=== PATIENT | female | born 1980 | race Caucasian/White ===

== ENCOUNTER 2022-08-02 14:54 | Emergency (ER) | payer BC, SELFPAY ==
[2022-08-02 15:07] VITALS: BP 115/71; PULSE 71; RESP 16; TEMP 36.6; O2SAT 97
--- NOTE | 2022-08-02 15:18 | ED.GENADULT ---
HPI - General Adult General Chief complaint: Nausea/Vomiting/Diarrhea Stated complaint: inflamed lining in stomach Time Seen by Provider: 08/02/22 15:18 Source: patient, RN notes reviewed and old records reviewed Mode of arrival: ambulatory Limitations: no limitations History of Present Illness HPI narrative: 42 year old female who presents to express care with complaints of having flu in May with prolonged feelings of nausea and vomiting and episodes of diarrhea since that time. Patient reports that she has seen her PCP 3 times without improvement in symptoms.She has been seen in the emergency room in [facility], and also [facility]. She reports that her symptoms of nausea and vomiting, diarrhea have decreased since medications of Carafate and Prilosec have been started and she is not taking her Metformin. She was told by ER doctor in [place] that she has inflammation of the lining of her stomach. Patient reports today that she is having some intermittent sharp right upper quadrant abdominal discomfort and doesn't know where to turn next. Patient reports no blood noted in emesis or stools, reports that she had one incidence of blood noted in diarrhea in June none since.Patient does have some discomfort on palpation to right upper abdominal quadrant denies any radiation of pain to back or any feelings of bloating. MD complaint: nausea with vomiting, diarrhea, right upper abdomen pain Onset (ago): week(s) (9) Location: abdomen (right upper quadrant abdomen) Severity scale (1-10): 3 Treatments prior to arrival: other (carafate and omeprazole) Related Data Allergies Allergy/AdvReac Type Severity Reaction Status Date / Time Sulfa (Sulfonamide Allergy Rash Verified 08/02/22 15:33 Antibiotics) Review of Systems Review of Systems: CONSTITUTIONAL: Denies fever, chills, or sweats. ENT: Denies rhinorrhea, congestion, sore throat, or otalgia. CARDIOVASCULAR: Denies chest pain, palpitations, or edema. RESPIRATORY: Denies cough or dyspnea. GASTROINTESTINAL: Reports right upper quadrant abdominal pain, nausea, vomiting, diarrhea. GENITOURINARY: Denies dysuria or hematuria. SKIN: Denies rash or itching. MUSCULOSKELETAL: Denies back pain, joint pain, or myalgia. NEUROLOGIC: Denies headache, numbness, or weakness. All systems reviewed & are unremarkable except as noted in HPI and below PMFSH Past Medical History Medical History (Updated 08/02/22 @ 17:03 by Chrissie Amador NP) Diabetes Premature infant of unknown weight 6 month gestation Surgical History Surgical History (Updated 08/02/22 @ 17:04 by Chrissie Amador NP) Hx of heart surgery history of heart-lung surgery as premature infant Social History Social History (Updated 08/02/22 @ 17:02 by Chrissie Amador NP) Smoking status: Former smoker Alcohol intake: current Alcohol use details: rare social Substance use type: does not use Gender identity (if verbalized by the patient): Female Comments At time of signature, agree with nursing past medical, surgical, social and family history. There is no relevant family history pertinent to the presenting complaint Exam Narrative: GENERAL: Well-appearing, well-nourished, and in no acute distress. HEAD: Normocephalic, atraumatic. EYES: PERRLA, conjunctivae clear, and EOMI. ENT: Nares clear. Mucous membranes moist. Oropharynx without edema, erythema, or lesions. Tonsils not enlarged and without exudate. NECK: Supple. No lymphadenopathy CHEST: Speaks in full sentences. No respiratory distress. HEART: Regular rate and rhythm. ABDOMEN: Soft, flat, nondistended. No guarding, rebound tenderness, or rigid. No pulsatilla masses. Bowel sounds present in all four quadrants. No organomegaly. No periumbilical tenderness. No Supra public tenderness or distension. Good femoral pulses bilaterally. No hernia noted. No scars or surface trauma,palpable pain to right upper abdominal quadrant. SKIN: W
== END 2022-08-02 16:03 | disposition home or self-care (01) ==
PROVIDERS: Emergency Provider Registered Nurse
DX: K29.70 Gastritis, unspecified, without bleeding (principal); R10.11 Right upper quadrant pain; Z87.891 Personal history of nicotine dependence; E11.9 Type 2 diabetes mellitus without complications
CPT/HCPCS: 99213; G0463

== ENCOUNTER 2022-08-07 12:10 | Outpatient (CLI) | payer BC, SELFPAY ==
--- NOTE | ~2022-08-07 | XR_ITS ---
Supine and upright views of the abdomen Clinical history: Abdominal pain Findings: Bowel gas pattern is nonspecific. No evidence for obstruction or free air. No abnormal mass lesion or calcification is seen. Osseous structures are intact. Impression: No significant abnormality is seen. Reviewed, dictated and finalized at [facility]. 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
[2022-08-07 13:18] LABS: Hemoglobin 15.1 g/dL (12.0-15.0); Mean Corpuscular HGB Conc 32.1 g/dl (32-36); Mean Corpuscular Hemoglobin 28.4 pg (26-34); Mean Corpuscular Volume 88.5 fl (80-100); Mean Platelet Volume 9.6 fl (7.4-10.4); Platelet Count Result 450 k/mm3 (150-375); Red Blood Count 5.31 M/mm3 (4.2-5.4); Red Cell Distribution Width 13.2 % (11.5-14.5); White Blood Count 10.4 K/mm3 (4.5-10.0)
[2022-08-07 13:32] LABS: Alanine Aminotransferase 68 U/L (6-35); Albumin Level 4.4 g/dL (3.5-5.1); Alkaline Phosphatase 66 U/L (38-126); Amylase 73 U/L (30-110); Anion Gap 7 mmol/L (8-16); Aspartate Amino Transferase 45 U/L (14-36); Bilirubin,Total 0.4 mg/dL (0.2-1.3); Blood Urea Nitrogen 16 mg/dL (7-17); CRP 0.6 mg/dL (<1.0); Calcium 8.8 mg/dL (8.4-10.2); Carbon Dioxide 24 mmol/L (22-30); Chloride 102 mmol/L (98-107); Estimated Glomerular Filt Rate > 60; Glucose 174 mg/dL (65-110); Lipase 142 U/L (23-300); Potassium 3.8 mmol/L (3.4-5.0); Sodium 133 mmol/L (137-145)
[2022-08-07 14:24] LABS: Thyroid Stimulating Hormone Reflex 0.358 uIU/mL (0.465-4.68)
[2022-08-07 14:55] LABS: Free T4 Free Thyroxine Reflex 1.66 ng/dL (0.78-2.19)
[2022-08-07 15:24] LABS: Erythrocyte Sedimentation Rate 4 mm/hr (0-20)
[2022-08-07 17:26] LABS: Total Triiodothyronine (T3) 1.48 NG/ML (0.97-1.69)
[2022-08-10 13:01] LABS: Gliadin AB, IgG <1.0 U/mL (<15.0); TTG IGA AB <1.0 U/mL (<15.0)
== END 2022-08-07 12:11 | disposition home or self-care (01) ==
PROVIDERS: PCP Nurse Practitioner; Visit Provider Nurse Practitioner
DX: R10.11 Right upper quadrant pain (principal); R14.0 Abdominal distension (gaseous); R11.0 Nausea; K92.1 Melena; R10.817 Generalized abdominal tenderness
CPT/HCPCS: 36415; 74018; 80053; 82150; 83516; 83690; 84439; 84443; 84480; 85027; 85652; 86140; 86255

== ENCOUNTER 2022-08-08 12:18 | Outpatient (CLI) | payer BC, SELFPAY ==
--- NOTE | ~2022-08-08 | US_ITS ---
US abdomen limited INDICATION: Right upper quadrant pain since May. Nausea. PROCEDURE: Realtime right upper abdominal ultrasound. COMPARISON: No prior studies for comparison. FINDINGS: The pancreas is normal without focal mass or pancreatic ductal dilation. Liver echotexture is diffusely increased, consistent with fatty infiltration. There is focal fatty sparing near the ga llbladder fossa. There is normal directional flow in the portal vein. The gallbladder is normal without stones, gallbladder wall thickening or pericholecystic fluid. Comm on bile duct measures 4 mm. Positive sonographic Salas's sign. IMPRESSION: 1: Hepatic steatosis. 2: Positive sonographic Salas's sign, nonspecific. No significant abnormality of the gallbladder bernice ntified. Reviewed, dictated and finalized at location [facility]. 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 2: Positive sonographic Salas's sign, nonspecific. No significant abnormality of the gallbladder identified.
[2022-08-08 18:45] LABS: Hemoglobin A1C 6.4 % (<5.7)
[2022-08-08 18:57] LABS: Hepatitis B Surface Antigen Negative (Negative)
[2022-08-08 19:03] LABS: HAV RESULT Negative (Negative); Hepatitis B Core IgM Result Negative (Negative)
[2022-08-08 19:15] LABS: Hepatitis C Virus Antibody Negative (Negative)
== END 2022-08-08 12:19 | disposition home or self-care (01) ==
LOC: ANHIMG 12:19
PROVIDERS: PCP Nurse Practitioner; Visit Provider Nurse Practitioner
DX: R10.11 Right upper quadrant pain (principal); R11.0 Nausea; R14.0 Abdominal distension (gaseous); R73.09 Other abnormal glucose; R79.89 Other specified abnormal findings of blood chemistry; K76.0 Fatty (change of) liver, not elsewhere classified
CPT/HCPCS: 36415; 76705; 80074; 83036

== ENCOUNTER 2022-08-29 01:48 | Day surgery (SDC) | payer BC, SELFPAY ==
[2022-08-17 15:49] VITALS: BMI 32.6
[2022-08-29 13:13] VITALS: BP 104/63; PULSE 79; RESP 17; TEMP 36.4; O2SAT 97; BMI 31.9
[2022-08-29] MEDS: LACTATED RINGERS 1,000 ML 150 ML IV CONT (13:27)
[2022-08-29 13:30] LABS: Glucose Point of Care 130 mg/dl (65-105)
--- NOTE | 2022-08-29 13:44 | WPDHPUPDATE1 ---
History and Physical Update Update Date/Time: 08/29/22 13:44 History and Physical has been reviewed, including an updated exam of the patient. There are NO changes in the patient's condition. Risks, benefits, and alternatives have been discussed and questions answered. Patient agrees to proceed with procedure.
--- NOTE | 2022-08-29 13:47 | WPDANESEPPF ---
Anes - Initial Pre Proc Eval Procedure: Operation Date: 08/29/22 14:15 Proposed Procedures p Esophagogastroduodenoscopy & Colonoscopy - Rivera Singer MD Date/Time: 08/29/22 13:47 Surgeon: Rivera Singer MD Pre Op Diagnosis: Hematochezia, Nausea, Abdominal Pain Patient Data Age: 42 Gender: F Height: 1.57 m Weight: 79.3 kg Last Vital Signs Temp 97.6 F 08/29/22 13:13 Pulse 79 08/29/22 13:13 Resp 17 08/29/22 13:13 BP 104/63 08/29/22 13:13 Pulse Ox 97 08/29/22 13:13 O2 Del Method Room Air 08/29/22 13:13 Allergies Allergy/AdvReac Type Severity Reaction Status Date / Time Sulfa (Sulfonamide Allergy Rash Verified 08/29/22 13:07 Antibiotics) Red dye 11 Allergy Mild Hives Uncoded 08/29/22 13:07 Home Medications Medication Instructions Recorded Confirmed Type dicyclomine 20 mg tablet 20 mg PO .every 6 hours PRN 08/07/22 08/29/22 Rx abdominal discomfort #120 tabs empagliflozin 25 mg tablet 25 mg PO DAILY 08/07/22 08/29/22 History (Jardiance) omeprazole 40 mg capsule,delayed 40 mg PO BID #60 caps 08/07/22 08/29/22 Rx release ondansetron 4 mg disintegrating 4 mg PO Q8H PRN Nausea And Vomiting 08/07/22 08/29/22 History tablet sucralfate 1 gram tablet (Carafate) 1 g PO ACHS #120 tabs 08/07/22 08/29/22 Rx metoclopramide HCl 5 mg tablet 5 mg PO ACHS #120 tabs 08/14/22 08/29/22 Rx (Reglan) levothyroxine 112 mcg tablet 112 mcg PO DAILY 08/17/22 08/29/22 History metformin 500 mg tablet 500 mg PO DAILY 08/17/22 08/29/22 History Laboratory Tests 08/29/22 13:21 POC Capillary Glucose 130 mg/dl H mg/dl (65-105) Patient hx anesthesia problems: none Family hx anesthesia problems: none Results Review: All pre-operative results and documents have been reviewed as part of the pre-operative evaluation. [facility] Past Medical History Medical History (Updated 08/08/22 @ 08:32 by Julieta Laurent APRN) Abdominal distension Diabetes Elevated glucose Elevated LFTs Generalized abdominal tenderness Hematochezia Low TSH level Nausea Obesity Premature of unknown weight 6 month gestation RUQ abdominal pain Surgical History Surgical History Hx of heart surgery history of heart-lung surgery as premature Social History Social History Smoking status: Former smoker Tobacco type: cigarettes Alcohol intake: current Alcohol use details: rarely- 2X yearly Substance use: never Substance use type: does not use Gender identity (if verbalized by the patient): Female Spiritual care concerns: No Anes - Eval Final PreProcedure Day of Procedure 08/29/22 13:47 Patient weight: obese Heart: regular rate and rhythm Lungs: clear to auscultation Airway: Mallampati scale class III Neurological: alert and oriented Last oral intake: >/= 8 hours ASA classification: III Emergent: no Anesthetic plan: proceed Anesthesia type and monitoring: general GIVS and standard monitoring Results Review: All pre-operative results and documents have been reviewed as part of the pre-operative evaluation. Informed Consent: The patient's anesthetic plan and its attendant risks and benefits were discussed with the patient/family/POA. Questions were solicited and answers provided to the satisfaction of the patient/family/POA.
--- NOTE | 2022-08-29 14:05 | SUR.OPER ---
EGD: [id number] COLON: [id number]
[2022-08-29 14:19] VITALS: BP 94/61; PULSE 89; RESP 19; O2SAT 96
[2022-08-29 14:29] VITALS: BP 105/69; PULSE 88; RESP 30; O2SAT 95
[2022-08-29 14:39] VITALS: BP 98/64; PULSE 75; RESP 20; O2SAT 93
== END 2022-08-29 14:45 | disposition home or self-care (01) ==
PROVIDERS: Visit Provider Internal Medicine Gastroenterology
PROC: 0DJ08ZZ Inspection of Upper Intestinal Tract, Via Natural or Artificial Opening Endoscopic (ICD-10-PCS; CPT 43235; principal; 2022-08-29 14:15)
DX: R10.817 Generalized abdominal tenderness (principal); K92.1 Melena; R11.2 Nausea with vomiting, unspecified; R14.0 Abdominal distension (gaseous); E11.9 Type 2 diabetes mellitus without complications; E66.9 Obesity, unspecified; Z87.891 Personal history of nicotine dependence; R10.30 Lower abdominal pain, unspecified
CPT/HCPCS: 43239; 45378; 82948; 88305; J2704; J7120